=== PATIENT | male | born 1985 | race Caucasian/White ===

== ENCOUNTER 2020-10-19 15:40 | Emergency (ER) | payer SELFPAY ==
[~2020-10-19] VITALS: Ht 182.9 cm; Wt 127.0 kg
[2020-10-19 16:45] VITALS: BP 113/80
--- NOTE | 2020-10-19 17:32 | RAD ---
STUDY: CT of the right lower extremity without contrast INDICATION: Infectious process medial distal lower leg on the right. COMPARISON: None. TECHNIQUE: Axial CT imaging of the right lower extremity performed without contrast. Coronal and sagi ttal reformats were obtained. One or more of the following individualized dose reduction techniques were utilized for this examinat ion: 1. Automated exposure control 2. Adjustment of the mA and/or kV according to patient size 3. Use of iterative reconstruction technique. FINDINGS: Bones: No fracture, active erosion or periostitis. No significant arthrosis at the ankle or involving the im aged foot. Soft tissues: The superficial soft tissues are irregular along the medial aspect of the distal tibia, such as seen on image 99 series 3. No localized fluid collection deep to this location or soft tissue gas. Multifo farrah subcutaneous edema-like attenuation and areas of relative skin thickening with limited ability to distinguish between bland edema or cellulitis on this exam. Faint subfascial edema such as at the me dial aspect of the lower calf but muscular density is relatively homogeneous joint against active ene sitis. No overt thickening of the superficial fascia. Possible fluid within the PTT tendon sheath both above and below the ankle. No evidence for full-thic kness tendon disruption. Focus of chronic mineralization along the deep margin of the plantar fascia central band, image 29 series 5. No large ankle joint effusion. IMPRESSION: 1. Irregularity of the superficial soft tissues at the medial aspect of the lower leg (image 99 seri es 3) without a well delineated fluid collection or soft tissue gas deep to this finding or seen else where throughout the imaged leg. Multifocal subcutaneous edema and faint subfascial edema at a few lo cations with limited ability to distinguish between bland edema and cellulitis on this unenhanced CT. No intramuscular fluid collection or localized muscular hypoattenuation that would suggest myositis. 2. Unremarkable osseous structures. Electronically signed by: FABBY FRANCIS MD (10/19/2020 5:29 PM) [id number]
[2020-10-19 18:27] LABS: BASO # 0.1 x10^3/uL (0.0-0.2); BASO % 1 % (0-3); EOS % 0 % (0-3); HEMATOCRIT 44.3 % (39.0-53.0); HEMOGLOBIN 14.8 g/dL (13.0-17.5); LYMPH # 1.7 x10^3/uL (1.0-4.8); LYMPH % 15 % (24-48); MEAN CORPUSCULAR HEMOGLOBIN 29 pg (25-35); MEAN CORPUSCULAR HGB CONC 33 g/dL (31-37); MEAN CORPUSCULAR VOLUME 86 fL (79-100); MONO % 9 % (0-9); NEUT # 8.8 x10^3/uL (1.8-7.7); NEUT % 76 % (31-73); PLATELET COUNT 192 x10^3/uL (140-400); RED BLOOD COUNT 5.15 x10^6/uL (4.30-5.70); WHITE BLOOD COUNT 11.7 x10^3/uL (4.0-11.0)
[2020-10-19 18:34] LABS: CALCIUM 9.7 mg/dL (8.5-10.1); CREATININE 0.9 mg/dL (0.7-1.3); POTASSIUM 4.2 mmol/L (3.5-5.1)
[2020-10-19 18:39] LABS: ALBUMIN 4.2 g/dL (3.4-5.0); ALBUMIN/GLOBULIN RATIO 1.1 (1.0-1.7); TOTAL BILIRUBIN 0.8 mg/dL (0.2-1.0); TOTAL PROTEIN 8.2 g/dL (6.4-8.2)
[2020-10-19] MEDS ORDERED: CEPH500T PO (19:16)
--- NOTE | 2020-10-19 19:17 | PHYS DOC ---
Past Medical History Past Medical History: No Pertinent History Past Surgical History: No Surgical History Smoking Status: Never Smoker Alcohol Use: None General Adult EDM: Chief Complaint: LOWER EXT PAIN HPI: HPI: Patient is a 35 year old male presents to the emergency department complaining of an infection to his right lower leg and foot he states is been there for the past month. Patient states he has been unable to get adequate care at [facility] and decided to have the ambulance bring him to the ER today. Patient states he is a cigarette smoker, denies illicit drug use, denies drinking alcohol. Patient states that he is homeless. Patient states that after his care in the ER if he has not admitted that he will require transportation to a homeless center. Patient states he wishes to be admitted to the hospital. Patient states he does not have any money and cannot afford any antibiotics if they are prescribed to him. Patient denies any other physical symptoms or physical complaints. Review of Systems: Review of Systems: 14 body systems of review of systems have been reviewed. See HPI for pertinent positives and negative responses, otherwise all other systems are negative, nonpertinent or noncontributory. Heart Score: Risk Factors: Risk Factors: DM, Current or recent (<one month) smoker, HTN, HLP, family history of CAD, obesity. Risk Scores: Score 0 - 3: 2.5% MACE over next 6 weeks - Discharge Home Score 4 - 6: 20.3% MACE over next 6 weeks - Admit for Clinical Observation Score 7 - 10: 72.7% MACE over next 6 weeks - Early Invasive Strategies Current Medications: Current Medications Medications (Trade) Dose Ordered Sig/[facility]ly [facility] Start Time Stop Time Status Last Admin Dose Admin Cefazolin Sodium/ Dextrose 50 ml @ 100 mls/hr 1X ONCE 10/19/20 18:45 10/19/20 19:14 10/19/20 18:39 100 MLS/HR Allergies: Allergies: Allergies Coded Allergies Type Severity Reaction Last Updated Verified No Known Drug Allergies 10/19/20 No Physical Exam: PE: Constitutional: Well developed, well nourished, no acute distress, non-toxic appearance. Patient disheveled, soiled clothes, barefoot. HENT: Normocephalic, atraumatic, bilateral external ears normal, oropharynx moist, no oral exudates, nose normal. Eyes: PERRLA, EOMI, conjunctiva normal, no discharge. Neck: Normal range of motion, no tenderness, supple, no stridor. Cardiovascular:Heart rate regular rhythm, no murmur Lungs & Thorax: Bilateral breath sounds clear to auscultation Abdomen: Bowel sounds normal, soft, no tenderness, no masses, no pulsatile masses. Skin: Warm, dry, no erythema, no rash. Right lower extremity medial aspect distal lower extremity just above ankle has a 6 cm open infection weeping malodorous purulence. Small abscesses to the top of foot both weeping malodorous purulence. Back: No tenderness, no CVA tenderness. Extremities: No tenderness, no cyanosis, no clubbing, ROM intact, no edema. Neurologic: Alert and oriented X 3, normal motor function, normal sensory function, no focal deficits noted. Psychologic: Affect normal, judgement normal, mood normal. Current Patient Data: Labs: Laboratory Tests Test 10/19/20 18:15 White Blood Count 11.7 x10^3/uL (4.0-11.0) H Red Blood Count 5.15 x10^6/uL (4.30-5.70) Hemoglobin 14.8 g/dL (13.0-17.5) Hematocrit 44.3 % (39.0-53.0) Mean Corpuscular Volume 86 fL (79-100) Mean Corpuscular Hemoglobin 29 pg (25-35) Mean Corpuscular Hemoglobin Concent 33 g/dL (31-37) Red Cell Distribution Width 14.0 % (11.5-14.5) Platelet Count 192 x10^3/uL (140-400) Neutrophils (%) (Auto) 76 % (31-73) H Lymphocytes (%) (Auto) 15 % (24-48) L Monocytes (%) (Auto) 9 % (0-9) Eosinophils (%) (Auto) 0 % (0-3) Basophils (%) (Auto) 1 % (0-3) Neutrophils # (Auto) 8.8 x10^3/uL (1.8-7.7) H Lymphocytes # (Auto) 1.7 x10^3/uL (1.0-4.8) Monocytes # (Auto) 1.0 x10^3/uL (0.0-1.1) Eosinophils # (Auto) 0.0 x10^3/uL (0.0-0.7) Basophils # (Auto) 0.1 x10^3/uL (0.0-0.2) Sodium Level 141 mmol/L (136-145) Potassium Level 4.2 mmol/L (3.5-5.1) Chloride Level 101 mmol/L (98-107) Carbon Dioxide Level 25 mmol/L (21-32) Anion Gap 15 (6-14) H Blood Urea Nitrogen 13 mg/dL (8-26) Creatinine 0.9 mg/dL (0.7-1.3) Estimated GFR (Cockcroft-Gault) 96.0 BUN/Creatinine Ratio 14 (6-20) Glucose Level 79 mg/dL (70-99) Lactic Acid Level 1.5 mmol/L (0.4-2.0) Calcium Level 9.7 mg/dL (8.5-10.1) Total Bilirubin 0.8 mg/dL (0.2-1.0) Aspartate Amino Transferase (AST) 24 U/L (15-37) Alanine Aminotransferase (ALT) 32 U/L (16-63) Alkaline Phosphatase 114 U/L (46-116) Total Protein 8.2 g/dL (6.4-8.2) Albumin 4.2 g/dL (3.4-5.0) Albumin/Globulin Ratio 1.1 (1.0-1.7) Laboratory Tests 10/19/20 18:15 Laboratory Tests 10/19/20 18:15 Vital Signs: Vital Signs Date Time Temp Pulse Resp B/P (MAP) Pulse Ox O2 Delivery O2 Flow Rate FiO2 10/19/20 16:45 98.6 108 20 113/80 (91) 99 Room Air 98.6 EKG: EKG: [] Radiology/Procedures: Radiology/Procedures: SEX: M EXAM STATUS: REG ER ORD. PHYSICIAN: LARRY RIGGS APRN REASON: INFECTIOUS PROCESS RIGHT MEDIAL DISTAL LOWER LEG PROCEDURE: CT LOWER EXTREMITY WO RIGHT STUDY: CT of the right lower extremity without contrast INDICATION: Infectious process medial distal lower leg on the right. COMPARISON: None. TECHNIQUE: Axial CT imaging of the right lower extremity performed without contr ast. Coronal and sagittal reformats were obtained. One or more of the following individualized dose reduction techniques were utilized for this examination: 1. Automated exposure control 2. Adjustment of the mA and/or kV according to patient size 3. Use of iterative reconstruction technique. FINDINGS: Bones: No fracture, active erosion or periostitis. No significant arthrosis at the ankle or involving the imaged foot. Soft tissues: The superficial soft tissues are irregular along the medial aspect of the distal tibia, such as seen on image 99 series 3. No localized fluid collection deep to this location or soft tissue gas. Multifocal subcutaneous edema-like attenuation and areas of relative skin thickening with limited ability to distinguish between bland edema or cellulitis on this exam. Faint subfascial edema such as at the medial aspect of the lower calf but muscular density is relatively homogeneous joint against active myositis. No overt thickening of the superficial fascia. Possible fluid within the PTT tendon sheath both above and below the ankle. No evidence for full-thickness tendon disruption. Focus of chronic mineralization along the deep margin of the plantar fascia central band, image 29 series 5. No large ankle joint effusion. IMPRESSION: 1. Irregularity of the superficial soft tissues at the medial aspect of the lower leg (image 99 series 3) without a well delineated fluid collection or soft tissue gas deep to this finding or seen elsewhere throughout the imaged leg. Multifocal subcutaneous edema and faint subfascial edema at a few locations with limited ability to distinguish between bland edema and cellulitis on this unenhanced CT. No intramuscular fluid collection or localized muscular hypoattenuation that would suggest myositis. 2. Unremarkable osseous structures. Electronically signed by: FABBY FRANCIS MD (10/19/2020 5:29 PM) [id number] DICTATED and SIGNED BY: FABBY FRANCIS MD DATE: 10/19/20 [id number] 0 Course & Med Decision Making: Course & Med Decision Making Pertinent Labs and Imaging studies reviewed. (See chart for details) 35-year-old male, vital signs reviewed, presents emergency department for care for abscess of his left leg. Examination concerning for deep tissue infection, CT ordered to rule out gangrene, and/or osteomyelitis. There was no streaking centrally from abscesses. CT negative for deep tissue infection, patient started on 2 g Ancef IV, will discharge to home with prescription for Keflex 500 mg 4 times daily for [address] findings and discharge planning with patient who was amenable to this plan, patient gave verbal understanding of discharge instructions, need to take antibiotics, follow-up with primary care, return to ER precautions and concerns, had no further questions or concerns and was discharged home without incident. Dragon Disclaimer: Dragjody Disclaimer: This electronic medical record was generated, in whole or in part, using a voice recognition dictation system. Departure Departure Impression: Primary Impression: Abscess of right lower extremity Disposition: 01 DC HOME SELF CARE/HOMELESS Condition: IMPROVED Referrals: NO PCP (PCP) Patient Instructions: Abscess Additional Instructions: Please take antibiotics as prescribed, follow-up with your primary care doctor soon, return to emergency department for worsening symptoms or other concerns. Scripts Cephalexin (CEPHALEXIN) 500 Mg Tablet 1 TAB PO QID for skin infection, #40 TAB Prov: LARRY RIGGS APRN 10/19/20 LARRY RIGGS APRN Oct 19, 2020 19:16
== END 2020-10-19 20:02 | disposition home or self-care (01) ==
LOC: ER 15:40
DX: L02.415 Cutaneous abscess of right lower limb (principal); Z59.0 Homelessness; F17.210 Nicotine dependence, cigarettes, uncomplicated
CPT/HCPCS: 36415; 73700; 80053; 83605; 85025; 87040; 87071; 87075; 96365; 99284; J0690